=== PATIENT | male | born 1980 | race Caucasian/White ===

== ENCOUNTER 2019-04-24 19:05 | Emergency (ER) | payer SELFPAY ==
[~2019-04-24] VITALS: Ht 188 cm; Wt 157.2 kg
[~2019-04-24 19:05] MED LIST: ANAPROX DS550 MG OR; ATIVAN0.5 MG PO; CIPROFLOXACN500 MG PO; E.E.S. 400400 MG OR; FLEXERIL OR; LORTAB 5/3255 MG PO; LORTAB 7.57.5 MG PO; LOSARTAN POT25 MG PO; MUCINEX D1 TAB PO; NAPROSYN500 MG OR; NO MEDS; ROBITUSSI8 OR; ROBITUSSIN AC; ROBITUSSIN AC10 ML PO; ULTRAM50 M1 PO; VICOPROFEN OR; ZITHROMAX250 MG PO; ZPAK OR; ZPAK PO
[2019-04-24 19:38] VITALS: BP 134/89
== END 2019-04-24 19:43 | disposition home or self-care (01) | DRG 305 ==
LOC: ED 19:05
DX: I10 Essential (primary) hypertension (principal); T24.201A Burn of second degree of unspecified site of right lower limb, except ankle and foot, initial encounter; X03.0XXA Exposure to flames in controlled fire, not in building or structure, initial encounter; W40.1XXA Explosion of explosive gases, initial encounter; Y92.009 Unspecified place in unspecified non-institutional (private) residence as the place of occurrence of the external cause

== ENCOUNTER 2019-05-09 23:46 | Emergency (ER) | payer SELFPAY ==
[~2019-05-09] VITALS: Ht 188 cm; Wt 155.0 kg
[2019-05-10 00:24] VITALS: BP 134/90
== END 2019-05-10 00:23 | disposition home or self-care (01) | DRG 301 ==
LOC: ED 23:46
DX: I83.891 Varicose veins of right lower extremity with other complications (principal)

== ENCOUNTER 2020-05-02 20:40 | Emergency (ER) | payer BC ==
[~2020-05-02] VITALS: Ht 188 cm; Wt 163.6 kg
[2020-05-02 20:55] VITALS: BP 160/88
[2020-05-02] MEDS ORDERED: SILVADENE1 % EX (21:15)
[2020-05-02] MEDS ORDERED: TRAMADOL HCL50 MG PO (21:15)
[2020-05-02] MEDS ORDERED: MOTRIN800 MG PO (21:15)
== END 2020-05-02 21:30 | disposition home or self-care (01) | DRG 935 ==
LOC: ED 20:40
PROC: 2W2EX4Z Dressing of Right Hand using Bandage (ICD-10-PCS; principal; 2020-05-02)
DX: T23.251A Burn of second degree of right palm, initial encounter (principal); I10 Essential (primary) hypertension; W39.XXXA Discharge of firework, initial encounter; Y93.89 Activity, other specified; Y92.009 Unspecified place in unspecified non-institutional (private) residence as the place of occurrence of the external cause

== ENCOUNTER 2021-07-29 12:51 | Emergency (ER) | payer BC ==
[~2021-07-29] VITALS: Ht 188 cm; Wt 145.0 kg
[~2021-07-29 12:51] MED LIST changes: +MOTRIN800 MG PO; +SILVADENE1 % EX; +TRAMADOL HCL50 MG PO
[2021-07-29] MEDS ORDERED: MEDDOSEPAK PO (15:56)
[2021-07-29 16:20] VITALS: BP 143/89
== END 2021-07-29 16:20 | disposition home or self-care (01) | DRG 556 ==
LOC: ED 12:51
DX: M25.511 Pain in right shoulder (principal); I10 Essential (primary) hypertension

== ENCOUNTER 2022-10-19 10:50 | Emergency (ER) | payer SELFPAY ==
[~2022-10-19] VITALS: Ht 188 cm; Wt 152.7 kg
[2022-10-19] VITALS (8 sets, daily range): BP systolic 126–143; BP diastolic 86–98
[~2022-10-19 10:50] MED LIST changes: +MEDDOSEPAK PO
[2022-10-19] MEDS ORDERED: PREDNISONE20 MG PO (13:14)
== END 2022-10-19 14:18 | disposition home or self-care (01) | DRG 554 ==
LOC: ED 10:50
DX: M10.9 Gout, unspecified (principal)

== ENCOUNTER 2023-03-27 06:34 | Emergency (ER) | payer MEDICAID ==
[~2023-03-27] VITALS: Ht 188 cm; Wt 144.0 kg
[2023-03-27] VITALS (17 sets, daily range): BP systolic 137–167; BP diastolic 83–103
[~2023-03-27 06:34] MED LIST changes: +PREDNISONE20 MG PO
[2023-03-27 07:07] LABS: BASO% 0.8 % (0-3); EOS% 0.5 % (0-8); HEMATOCRIT 46.7 % (39.0-50.0); HEMOGLOBIN 15.1 g/dl (14.0-18.0); IMMATURE GRANULOCYTES 0.3 % (0.0-5.0); LYMPH% 35.2 % (15-41); MEAN CELL VOLUME 87.9 fL CALC (80.0-100.0); MEAN CORPUSCULAR HGB 28.4 pG CALC (26.0-32.0); MEAN CORPUSCULAR HGB CONC 32.3 g/dL CAL (32.0-36.0); MONO% 8.6 % (2-13); NEUT# 4.24 thou/uL (1.82-7.42); NEUT% 54.6 % (42-76); RED BLOOD COUNT 5.31 mill/uL (4.70-6.10); RED CELL DISTRI WIDTH 13.3 % (11.5-15.5)
[2023-03-27 07:15] LABS: ALBUMIN 4.7 g/dL (3.2-5.0); ALKALINE PHOSPHATASE 83 u/l (38-126); ANION GAP 16 (6-22 (CALC)); BUN 18 mg/dL (9-20); BUN/CREATININE RATIO 17 (12-20 (CALC)); CARBON DIOXIDE 23 mmol/l (22-30); CHLORIDE 104 mmol/l (95-108); GFR FOR AFR.AMER. > 60 ML/MIN (>=60 (CALC)); GFR OTHER RACES > 60 ML/MIN (>=60 (CALC)); POTASSIUM 3.6 mmol/l (3.5-5.1); SODIUM 139 mmol/l (137-146); TOTAL PROTEIN 7.8 g/dL (6.3-8.2)
[2023-03-27 07:22] LABS: BILIRUBIN, TOTAL 1.3 mg/dL (0.2-1.3); SGOT/AST 47 u/l (17-59)
== END 2023-03-27 11:07 | disposition home or self-care (01) ==
LOC: ED 06:34
PROVIDERS: Emergency Medicine
DX: R07.9 Chest pain, unspecified (principal); I10 Essential (primary) hypertension; T46.5X6A Underdosing of other antihypertensive drugs, initial encounter; Z91.128 Patient's intentional underdosing of medication regimen for other reason